=== PATIENT | male | born 1960 | race Two or more races ===

== ENCOUNTER 2023-04-16 23:26 | Inpatient (IN) | payer MEDICAID, OTHER ==
[~2023-04-16] VITALS: Ht 157.5 cm; Wt 51.9 kg
[2023-04-17 00:43] VITALS: PULSE 94; RESP 19; O2SAT 98
[2023-04-17 00:49] LABS: Basophils # (auto) 0 10 ^3/uL (0-0.2); Eosinophils # (auto) 0 10 ^3/uL (0-0.8); Hemoglobin 10.9 g/dL (13.5-17.5); Lymphocytes # (auto) 0.6 10 ^3/uL (0.4-5.4); Monocytes # (auto) 0.2 10 ^3/uL (0-1.3); Monocytes % (auto) 8.6 % (0.0-12.0); Neutrophils # (auto) 1.8 10 ^3/uL (1.6-8.6); White Blood Cell 2.8 10^3/uL (4.4-10.8)
[2023-04-17 00:50] LABS: Basophils % (auto) 1.3 % (0.0-2.0); Eosinophils % (auto) 1.4 % (0.0-7.0); Hematocrit 32.8 % (41.0-53.0); Lymphocytes % (auto) 23.3 % (10.0-50.0); Mean Corpuscular Hemoglobin 36.1 pg (28.0-32.0); Mean Corpuscular Hgb Conc. 33.2 g/dL (32.0-36.0); Mean Corpuscular Volume 108.8 fL (80.0-100.0); Neutrophils % (auto) 65.4 % (37.0-80.0); Nucleated Red Blood Cells % 0.1 %; Red Blood Cells 3.02 10^6/uL (4.5-5.90)
[2023-04-17 00:51] LABS: Red Cell Distribution Width 23.2 % (11.8-14.3)
[2023-04-17 01:00] VITALS: PULSE 92; RESP 21; O2SAT 97
[2023-04-17 01:04] LABS: Albumin 2.1 g/dL (3.4-5.0); BUN/Creatinine Ratio 4.7 (10.0-20.0); Calcium 8.3 mg/dL (8.5-10.1); Magnesium 2.5 mg/dL (1.6-2.6)
[2023-04-17 01:06] LABS: Bilirubin, Total 1.4 mg/dL (0.2-1.0); Total Protein 6.5 g/dL (6.4-8.2)
[2023-04-17 01:10] LABS: Lactic Acid w/Reflex 2.7 mmol/L (0.4-2.0)
[2023-04-17] MEDS ORDERED: HYDROcodone-ACET 5/325MG TAB PO PRN (01:45)
[2023-04-17] MEDS ORDERED: DOCUSATE SOD 100 MG CAP PO PRN (01:45)
[2023-04-17] MEDS ORDERED: NITROGLYCERIN 0.4 MG SL TAB SL PRN (01:45)
[2023-04-17] MEDS ORDERED: MORPHINE SULFATE INJ 2 MG/ml SYRG IV PRN (01:45)
[2023-04-17] MEDS ORDERED: ONDANSETRON HCL 4 MG/2 ML VIAL IV PRN (01:45)
[2023-04-17] MEDS ORDERED: ACETAMINOPHEN 325 MG TAB PO PRN (01:45)
[2023-04-17] MEDS ORDERED: ALBUMIN 25% 100 ML IV ONE (02:45)
[2023-04-17] MEDS ORDERED: LACTULOSE 10g/15ml SOLN 473ML PR STA (02:55)
[2023-04-17] MEDS: LACTULOSE 20Gm/30ML SOLN NG ONE ×2 (03:30→03:44)
[2023-04-17] MEDS ORDERED: LACTULOSE 20Gm/30ML SOLN ONE ×2 (04:26→04:28)
[2023-04-17] MEDS ORDERED: LACTULOSE 10g/15ml SOLN 473ML PR ONE (04:30)
[2023-04-17] MEDS: LACTULOSE 20Gm/30ML SOLN PR SCH ×4 (06:00→23:01)
[2023-04-17] MEDS: SODIUM CHLOR 0.9% PF (SALINE LOCK) 10ML VIAL/SYR IV SCH ×3 (06:05→22:59)
[2023-04-17] MEDS: FAMOTIDINE (10MG/ML) 2ML VL IV SCH ×2 (10:29→23:01)
[2023-04-17] MEDS ORDERED: cefTRIAXone 1GM/50ML D5W 50 ML IV ONE (16:15)
[2023-04-17 20:00] VITALS: PULSE 81; RESP 14; O2SAT 95
[2023-04-17 22:00] VITALS: BP 121/70; PULSE 76; RESP 19; TEMP 98.2; O2SAT 98
[2023-04-17 22:36] VITALS: BP 121/70; PULSE 80; PULSE 85; RESP 18; TEMP 98.2; O2SAT 95; O2SAT 98
[2023-04-17] MEDS ORDERED: PNEUMOCOCCAL VACC POLYS 25 MCG/0.5 ML VIAL IM ONE (23:45)
[2023-04-18] MEDS ORDERED: SUCR5CHW PO (00:55)
[2023-04-18] MEDS ORDERED: RIFA550T PO (00:55)
[2023-04-18] MEDS ORDERED: CHOL20007 OR (00:55)
[2023-04-18] MEDS ORDERED: B-COTAB10 OR (00:55)
[2023-04-18] MEDS ORDERED: PANT1INJ3 PO (00:55)
[2023-04-18] MEDS ORDERED: LACT10PA2 PO (00:55)
[2023-04-18] MEDS ORDERED: MID10T GT (00:55)
[2023-04-18] MEDS ORDERED: LEVO25TA6 PO (00:55)
[2023-04-18 05:00] VITALS: BP 113/67; PULSE 77; RESP 16; TEMP 98.5; O2SAT 98
[2023-04-18] MEDS: LACTULOSE 20Gm/30ML SOLN PR SCH ×4 (05:50→23:17)
[2023-04-18] MEDS: SODIUM CHLOR 0.9% PF (SALINE LOCK) 10ML VIAL/SYR IV SCH ×3 (05:50→21:13)
[2023-04-18 06:57] LABS: Basophils # (auto) 0 10 ^3/uL (0-0.2); Basophils % (auto) 0.3 % (0.0-2.0); Eosinophils # (auto) 0.1 10 ^3/uL (0-0.8); Hematocrit 28.1 % (41.0-53.0); Hemoglobin 9.4 g/dL (13.5-17.5); Mean Corpuscular Hgb Conc. 33.4 g/dL (32.0-36.0); Monocytes # (auto) 0.3 10 ^3/uL (0-1.3); Neutrophils # (auto) 2.1 10 ^3/uL (1.6-8.6)
[2023-04-18 07:01] LABS: Eosinophils % (auto) 2.2 % (0.0-7.0); Lymphocytes % (auto) 29.6 % (10.0-50.0); Mean Corpuscular Hemoglobin 36.2 pg (28.0-32.0); Mean Corpuscular Volume 108.4 fL (80.0-100.0); Monocytes % (auto) 8.2 % (0.0-12.0); Neutrophils % (auto) 59.7 % (37.0-80.0); Nucleated Red Blood Cells % 0.2 %; Red Blood Cells 2.59 10^6/uL (4.5-5.90); White Blood Cell 3.5 10^3/uL (4.4-10.8)
[2023-04-18 07:04] LABS: Red Cell Distribution Width 23.5 % (11.8-14.3)
[2023-04-18 07:19] LABS: Potassium 3.8 mmol/L (3.5-5.1)
[2023-04-18 07:26] LABS: Albumin 2.1 g/dL (3.4-5.0); BUN/Creatinine Ratio 6.3 (10.0-20.0); Bilirubin, Total 1.3 mg/dL (0.2-1.0); Calcium 8.4 mg/dL (8.5-10.1); Total Protein 5.6 g/dL (6.4-8.2)
[2023-04-18 08:00] VITALS: PULSE 86
[2023-04-18 09:00] VITALS: BP 132/77; PULSE 80; RESP 18; TEMP 97.6; O2SAT 96
[2023-04-18] MEDS: FAMOTIDINE (10MG/ML) 2ML VL IV SCH ×2 (09:49→21:13)
[2023-04-18 13:00] VITALS: BP 113/68; PULSE 66; RESP 16; TEMP 97.8; O2SAT 99
[2023-04-18 20:00] VITALS: PULSE 68; PULSE 76; RESP 18; O2SAT 99
[2023-04-18 22:00] VITALS: BP 110/67; PULSE 66; RESP 16; TEMP 98; O2SAT 99
[2023-04-19 05:00] VITALS: BP 127/70; PULSE 76; RESP 16; TEMP 97.5; O2SAT 98
[2023-04-19] MEDS: LACTULOSE 20Gm/30ML SOLN PR SCH ×2 (05:39→12:00)
[2023-04-19] MEDS: SODIUM CHLOR 0.9% PF (SALINE LOCK) 10ML VIAL/SYR IV SCH ×2 (05:39→14:00)
[2023-04-19 06:51] LABS: Basophils # (auto) 0 10 ^3/uL (0-0.2); Eosinophils # (auto) 0.1 10 ^3/uL (0-0.8); Monocytes # (auto) 0.4 10 ^3/uL (0-1.3); Neutrophils # (auto) 2.1 10 ^3/uL (1.6-8.6); White Blood Cell 3.6 10^3/uL (4.4-10.8)
[2023-04-19 06:53] LABS: Basophils % (auto) 0.4 % (0.0-2.0); Eosinophils % (auto) 3.9 % (0.0-7.0); Hematocrit 29.8 % (41.0-53.0); Hemoglobin 9.8 g/dL (13.5-17.5); Lymphocytes # (auto) 1.1 10 ^3/uL (0.4-5.4); Lymphocytes % (auto) 28.8 % (10.0-50.0); Mean Corpuscular Hemoglobin 36.3 pg (28.0-32.0); Mean Corpuscular Hgb Conc. 32.7 g/dL (32.0-36.0); Mean Corpuscular Volume 111.1 fL (80.0-100.0); Monocytes % (auto) 9.9 % (0.0-12.0); Nucleated Red Blood Cells % 0.3 %; Red Blood Cells 2.69 10^6/uL (4.5-5.90)
[2023-04-19] MEDS ORDERED: SODIUM CHL 0.9% 1000 ML BAG XX ONE (07:00)
[2023-04-19 07:01] LABS: Red Cell Distribution Width 23.6 % (11.8-14.3)
[2023-04-19 07:06] LABS: BUN/Creatinine Ratio 6.7 (10.0-20.0); Calcium 8.3 mg/dL (8.5-10.1); Potassium 3.5 mmol/L (3.5-5.1)
[2023-04-19 08:10] VITALS: PULSE 68; PULSE 79; RESP 18; O2SAT 99
[2023-04-19 09:00] VITALS: BP 128/77; PULSE 73; RESP 18; TEMP 97.9; O2SAT 98
[2023-04-19] MEDS: FAMOTIDINE (10MG/ML) 2ML VL IV SCH (10:00)
[2023-04-19 13:00] VITALS: BP 97/65; PULSE 75; RESP 18; TEMP 97.9; O2SAT 100
[2023-04-19 14:13] VITALS: BP 97/65; PULSE 75; RESP 18; TEMP 97.9; O2SAT 100
[2023-04-19] MEDS ORDERED: EPOETIN ALFA-EPBX 4,000 UNIT/ML VIAL SC ONE (21:00)
[2023-04-20] MEDS ORDERED: LACT10PA2 PO (09:46)
== END 2023-04-19 17:33 | disposition home or self-care (01) ==
LOC: ER 23:35 → TELE 04-17 01:58 → TELE-WESTW 04-17 21:41
PROVIDERS: ADMIT Nurse Practitioner Acute Care; ATTEND Nurse Practitioner Acute Care
PROC: 5A1D70Z Performance of Urinary Filtration, Intermittent, Less than 6 Hours Per Day (ICD-10-PCS; principal; 2023-04-19)
DX: K76.82 Hepatic encephalopathy (principal); E43 Unspecified severe protein-calorie malnutrition; D61.818 Other pancytopenia; E87.20 Acidosis, unspecified; N18.6 End stage renal disease; E88.09 Other disorders of plasma-protein metabolism, not elsewhere classified; D63.8 Anemia in other chronic diseases classified elsewhere; K74.60 Unspecified cirrhosis of liver; K80.20 Calculus of gallbladder without cholecystitis without obstruction; Z99.2 Dependence on renal dialysis; Z79.899 Other long term (current) drug therapy; Z68.20 Body mass index [BMI] 20.0-20.9, adult
CPT/HCPCS: 36415; 70450; 74176; 80048; 80053; 82105; 82140; 82962; 83605; 83690; 83735; 84484; 85025; 87040; 87081; 90935; 93005; 96365; 96367; G0378; J0696; J1642; J3490; P9047